=== PATIENT | male | born 1985 | race Caucasian/White ===

== ENCOUNTER 2023-02-21 09:52 | Emergency (ER) | payer MEDICAID, OTHER ==
[~2023-02-21] VITALS: Ht 175.3 cm; Wt 98.6 kg
[~2023-02-21 09:52] MED LIST: LEVO500T2 PO
[2023-02-21 09:55] VITALS: TEMP 98.7
[2023-02-21] MEDS ORDERED: PRED20TA PO (10:52)
[2023-02-21] MEDS ORDERED: ALBU8HFA INH (10:52)
[2023-02-21] MEDS ORDERED: AZIT500T2 PO (10:52)
[2023-02-21 11:00] VITALS: BP 159/117; PULSE 100; RESP 19; O2SAT 97
== END 2023-02-21 16:43 | disposition home or self-care (01) ==
LOC: ER 09:53
DX: J18.9 Pneumonia, unspecified organism (principal); I10 Essential (primary) hypertension; G43.909 Migraine, unspecified, not intractable, without status migrainosus; Z72.89 Other problems related to lifestyle; Z79.2 Long term (current) use of antibiotics; Z79.899 Other long term (current) drug therapy
CPT/HCPCS: 71046; 99283